=== PATIENT | male | born 1980 | race African-American/Black ===

== ENCOUNTER 2024-06-30 12:51 | Emergency (ER) | payer OTHER, SELFPAY ==
[2024-06-30] VITALS (10 sets, daily range): BP systolic 147–158; BP diastolic 88–100; PULSE 93–114; RESP 11–19; TEMP 36.6; O2SAT 98–100
--- NOTE | 2024-06-30 12:57 | PC.NURSE ---
pt is A+Ox4. pt is refusing labs and IV at this time.
--- NOTE | 2024-06-30 13:13 | ECG_ITS ---
Test Date: 2024-06-30 13:33:23 Measurements Intervals [place] Rate: 89 P: 53 KS: 145 QRS: -12 QRSD: 90 T: 17 QT: 330 QTc: 402 Interpretive Statements SINUS RHYTHM MINIMAL VOLTAGE CRITERIA FOR LVH, CONSIDER NORMAL VARIANT [MEETS CRITERIA IN ONE OF: R(aVL), S(V1), R(V5), R(V5/V6)+S(V1)] SEPTAL MYOCARDIAL INFARCTION , PROBABLY OLD [40+ ms Q WAVE IN V1/V2] No previous ECG available for comparison Electronically Signed On 06-30-2024 15:40:34 CDT by Reinaldo Lo M.D.
--- NOTE | 2024-06-30 13:21 | ED.GENADULT ---
HPI - General Adult General Chief complaint: Overdose <Gato Leblanc MD - Last Filed: 07/03/24 17:57> Stated complaint: intentional OD <Gato Leblanc MD - Last Filed: 07/03/24 17:57> Time Seen by Provider: 06/30/24 13:01 <Gato Leblanc MD - Last Filed: 07/03/24 17:57> History of Present Illness HPI narrative: 44-year-old male present to the emergency department for evaluation for a suspected intentional overdose. Patient states he took amlodipine with the intent to kill himself. Patient states that he was ?tired of getting kicked and tired of having my back to the wall ?. Patient declined labs and workup. Patient states he only took 1 amlodipine and spit the rest out. Patient is declining to have any labs drawn at this time. Patient appears to be in no distress. <Gato Leblanc MD - Last Filed: 07/03/24 17:57> Related Data Allergies/adverse reactions: Allergies Allergy/AdvReac Type Severity Reaction Status Date / Time No Known Allergies Allergy Mild Verified 02/02/08 10:23 <Gato Leblanc MD - Last Filed: 07/03/24 17:57> Review of Systems Review of Systems: All systems reviewed & are unremarkable except as noted in HPI and below <Gato Leblanc MD - Last Filed: 07/03/24 17:57> PMFSH Social History Social History: Social History Substance use type: prescription drug <Gato Leblanc MD - Last Filed: 07/03/24 17:57> Exam Narrative: APPEARANCE: Well appearing, no pain, no distress, well-nourished. HEAD: normocephalic, atraumatic. EYES: PERRLA/EOMI, conjunctivae clear. NOSE: Normal no drainage EARS:TMS clear with good light reflex. THROAT: Pharynx clear, no exudate. NECK: Supple. No adenopathy, no masses. RESPIRATORY: Airway patent, respirations nonlabored. Clear to auscultation bilaterally, no rales, rhonchi, wheezing. CARDIOVASCULAR: Regular rate and rhythm without murmurs rubs or gallops. ABDOMINAL: Soft, nontender, nondistended, normal bowel sounds MUSCULOSKELETAL: Moves all extremities. Strength/ROM intact, No edema, No calf tenderness. NEURO: Alert. Cranial nerves II through XII intact. Good gait. Good coordination SKIN: Warm, dry. Normal Color <Gato Leblanc MD - Last Filed: 07/03/24 17:57> Course Reevaluation(s) Reevaluation #1: patient signed out to pending disposition. He is now with pain to provide blood work so that he can be evaluated by crisis. He is medically cleared for crisis evaluation. He Has been evaluated by psychiatry. They do feel he is stable for discharge with safety plan and close outpatient follow-up. Patient agreeable to this plan. Strict return precautions provided and he is stable for discharge with return precautions. <Rachel Stoll MD - Last Filed: 07/01/24 00:38> Vital Signs Vital signs: Vital Signs Pulse Rate 93 06/30/24 13:00 Respiratory Rate 15 06/30/24 13:00 Blood Pressure 158/100 H 06/30/24 13:00 Pulse Oximetry 100 06/30/24 13:00 Temperature 98 F 06/30/24 13:05 Pulse Rate 89 07/01/24 00:48 Respiratory Rate 14 07/01/24 00:48 Blood Pressure 142/82 H 07/01/24 00:48 Pulse Oximetry 97 07/01/24 00:48 Oxygen Delivery Room Air 06/30/24 13:05 <Gtao Leblanc MD - Last Filed: 07/03/24 17:57> Vital Signs Pulse Rate 93 06/30/24 13:00 Respiratory Rate 15 06/30/24 13:00 Blood Pressure 158/100 H 06/30/24 13:00 Pulse Oximetry 100 06/30/24 13:00 Temperature 98 F 06/30/24 13:05 Pulse Rate 89 07/01/24 00:48 Respiratory Rate 14 07/01/24 00:48 Blood Pressure 142/82 H 07/01/24 00:48 Pulse Oximetry 97 07/01/24 00:48 Oxygen Delivery Room Air 06/30/24 13:05 <Rachel Stoll MD - Last Filed: 07/01/24 00:38> Medical Decision Making MDM Narrative Medical decision making narrative: 44-year-old male presents emergency department for evaluation after a suicide attempt. Patient is alert and orientated and is declining any labs. Patient states he does not like needles. Patient was offered medication for anxiety to help with his aversion to needles and patient declined. Patient is not tachycardic patient is not hypotensive and patient is in no distress at this time. Crisis was called and declined to evaluate the patient. We will continue to evaluate the patient for further observation duration and will attempt to call crisis again. <Gato Leblanc MD - Last Filed: 07/03/24 17:57> Vital Signs Vital Signs: Vital Signs Pulse Rate 93 06/30/24 13:00 Respiratory Rate 15 06/30/24 13:00 Blood Pressure 158/100 H 06/30/24 13:00 Pulse Oximetry 100 06/30/24 13:00 Temperature 98 F 06/30/24 13:05 Pulse Rate 89 07/01/24 00:48 Respiratory Rate 14 07/01/24 00:48 Blood Pressure 142/82 H 07/01/24 00:48 Pulse Oximetry 97 07/01/24 00:48 Oxygen Delivery Room Air 06/30/24 13:05 <Gato Leblanc MD - Last Filed: 07/03/24 17:57> Vital Signs Pulse Rate 93 06/30/24 13:00 Respiratory Rate 15 06/30/24 13:00 Blood Pressure 158/100 H 06/30/24 13:00 Pulse Oximetry 100 06/30/24 13:00 Temperature 98 F 06/30/24 13:05 Pulse Rate 89 07/01/24 00:48 Respiratory Rate 14 07/01/24 00:48 Blood Pressure 142/82 H 07/01/24 00:48 Pulse Oximetry 97 07/01/24 00:48 Oxygen Delivery Room Air 06/30/24 13:05 <Rachel Stoll MD - Last Filed: 07/01/24 00:38> Lab Data Result diagrams: 06/30/24 21:14 06/30/24 21:14 <Gato Leblanc MD - Last Filed: 07/03/24 17:57> Labs: Lab Results 06/30/24 06/30/24 06/30/24 Range/Units 20:57 21:14 21:14 WBC 9.6 (4.5-10.0) K/mm3 RBC 4.70 (4.6-6.20) M/mm3 Hgb 9.0 L (14.0-18.0) g/dL Hct 32.7 L (42.0-52.0) % MCV 69.6 L (80-100) fl MCH 19.1 L (26-34) pg MCHC 27.5 L (32-36) g/dl RDW 16.3 H (11.5-14.5) % Plt Count 582 H (150-375) k/mm3 MPV 8.8 (7.4-10.4) fl Immature Gran % (Auto) 0.2 (0-0.5) % Neut % (Auto) 70.1 (45.5-73.1) % Lymph % (Auto) 23.2 (18.3-44.2) % [place] % (Auto) 5.3 (2.6-8.5) % Eos % (Auto) 0.8 (0-4.4) % Baso % (Auto) 0.4 (0.2-1.2) % Lymph # (Auto) 2.23 (0.9-3.2) K/mm3 [place] # (Auto) 0.5 (0.1-0.6) K/mm3 Eos # (Auto) 0.1 (0-0.3) K/mm3 Baso # (Auto) 0.0 (0.0-0.1) K/mm3 Abs Immat Gran (auto) 0.02 (0.00-0.031) K/mm3 Absolute Neuts (auto) 6.7 (1.3-6.7) K/mm3 Absolute Nucleated RBC 0.000 (0.0-0.012) K/mm3 Nucleated RBC % 0.0 (0.0-0.2) % Platelet Estimate Increased (Adequate) Large Platelets Present Hypochromasia 1+ Target Cells 1+ Ovalocytes 1+ Schistocytes None seen PT 15.0 H (11.1-14.7) Seconds INR 1.2 APTT 27.4 (22.3-36.8) Seconds Sodium 142 (137-145) mmol/L Potassium 3.7 (3.4-5.0) mmol/L Chloride 102 (98-107) mmol/L Carbon Dioxide 24 (22-30) mmol/L Anion Gap 16 H (4-12) mmol/L BUN 12 (9-20) mg/dL Creatinine 1.10 (0.7-1.3) mg/dL Estim Creat Clear Calc 70 ml/min Estimated GFR > 60 (59 - ) Glucose 101 (65-110) mg/dL Calcium 10.4 H (8.4-10.2) mg/dL Magnesium 2.1 (1.6-2.3) mg/dL Total Bilirubin 0.6 (0.2-1.3) mg/dL AST 38 (17-59) U/L ALT 22 (6-50) U/L Alkaline Phosphatase 104 (38-126) U/L Total Protein 11.0 H (6.3-8.2) g/dL Albumin 5.4 H (3.5-5.1) g/dL TSH 2.710 (0.465-4.680) uIU/mL Urine Color Yellow (Yellow) Urine Appearance Clear (Clear) Urine pH 7.0 (5.0-9.0) Ur Specific [place] 1.017 (1.001-1.035) Urine Protein Trace (Negative) mg/dL Urine Glucose (UA) Negative (Negative) mg/dL Urine Ketones Trace H (Negative) mg/dL Ur Blood (Man) Non-hemolyzed trace (Negative) Urine Nitrate Negative (Negative) Urine Bilirubin Negative (Negative) Urine Urobilinogen 1.0 (<2.0) mg/dL Leukocyte Esterase Rfl Trace H (Negative) JUAN F/UL Urine RBC 6-10 H (0-2) /hpf Urine WBC 0-5 (0-3) /hpf Ur Squamous Epith Cells None seen (Few) /hpf Urine Bacteria None seen /hpf Urine Casts 3-5 Salicylates < 1.0 L (2-20) mg/dL Urine Opiates Screen Negative (Negative) Urine Methadone Screen Negative (Negative) Acetaminophen Cancelled < 10 L Ur Barbiturates Screen Negative (Negative) Ur Phencyclidine Scrn Negative (Negative) Ur Amphetamine Screen Positive A (Negative) U Benzodiazepines Scrn Negative (Negative) Urine Cocaine Screen Negative (Negative) U Cannabinoids Screen Positive A (Negative) Ethyl Alcohol < 10 (<10) mg/dL Influenza A (RT-PCR) (Negative) Influenza B (RT-PCR) (Negative) RSV (RT-PCR) (Negative) SARS-CoV-2 RNA (RT-PCR) (Negative) 06/30/24 Range/Units 21:23 WBC (4.5-10.0) K/mm3 RBC (4.6-6.20) M/mm3 Hgb (14.0-18.0) g/dL Hct (42.0-52.0) % MCV (80-100) fl MCH (26-34) pg MCHC (32-36) g/dl RDW (11.5-14.5) % Plt Count (150-375) k/mm3 MPV (7.4-10.4) fl Immature Gran % (Auto) (0-0.5) % Neut % (Auto) (45.5-73.1) % Lymph % (Auto) (18.3-44.2) % [place] % (Auto) (2.6-8.5) % Eos % (Auto) (0-4.4) % Baso % (Auto) (0.2-1.2) % Lymph # (Auto) (0.9-3.2) K/mm3 [place] # (Auto) (0.1-0.6) K/mm3 Eos # (Auto) (0-0.3) K/mm3 Baso # (Auto) (0.0-0.1) K/mm3 Abs Immat Gran (auto) (0.00-0.031) K/mm3 Absolute Neuts (auto) (1.3-6.7) K/mm3 Absolute Nucleated RBC (0.0-0.012) K/mm3 Nucleated RBC % (0.0-0.2) % Platelet Estimate (Adequate) Large Platelets Hypochromasia Target Cells Ovalocytes Schistocytes PT (11.1-14.7) Seconds INR APTT (22.3-36.8) Seconds Sodium (137-145) mmol/L Potassium (3.4-5.0) mmol/L Chloride (98-107) mmol/L Carbon Dioxide (22-30) mmol/L Anion Gap (4-12) mmol/L BUN (9-20) mg/dL Creatinine (0.7-1.3) mg/dL Estim Creat Clear Calc ml/min Estimated GFR (59 - ) Glucose (65-110) mg/dL Calcium (8.4-10.2) mg/dL Magnesium (1.6-2.3) mg/dL Total Bilirubin (0.2-1.3) mg/dL AST (17-59) U/L ALT (6-50) U/L Alkaline Phosphatase (38-126) U/L Total Protein (6.3-8.2) g/dL Albumin (3.5-5.1) g/dL TSH (0.465-4.680) uIU/mL Urine Color (Yellow) Urine Appearance (Clear) Urine pH (5.0-9.0) Ur Specific [place] (1.001-1.035) Urine Protein (Negative) mg/dL Urine Glucose (UA) (Negative) mg/dL Urine Ketones (Negative) mg/dL Ur Blood (Man) (Negative) Urine Nitrate (Negative) Urine Bilirubin (Negative) Urine Urobilinogen (<2.0) mg/dL Leukocyte Esterase Rfl (Negative) JUAN F/UL Urine RBC (0-2) /hpf Urine WBC (0-3) /hpf Ur Squamous Epith Cells (Few) /hpf Urine Bacteria /hpf Urine Casts Salicylates (2-20) mg/dL Urine Opiates Screen (Negative) Urine Methadone Screen (Negative) Acetaminophen Ur Barbiturates Screen (Negative) Ur Phencyclidine Scrn (Negative) Ur Amphetamine Screen (Negative) U Benzodiazepines Scrn (Negative) Urine Cocaine Screen (Negative) U Cannabinoids Screen (Negative) Ethyl Alcohol (<10) mg/dL Influenza A (RT-PCR) Negative (Negative) Influenza B (RT-PCR) Negative (Negative) RSV (RT-PCR) Negative (Negative) SARS-CoV-2 RNA (RT-PCR) Negative (Negative) <Gato Leblanc MD - Last Filed: 07/03/24 17:57> Lab Results 06/30/24 06/30/24 06/30/24 Range/Units 20:57 21:14 21:14 WBC 9.6 (4.5-10.0) K/mm3 RBC 4.70 (4.6-6.20) M/mm3 Hgb 9.0 L (14.0-18.0) g/dL Hct 32.7 L (42.0-52.0) % MCV 69.6 L (80-100) fl MCH 19.1 L (26-34) pg MCHC 27.5 L (32-36) g/dl RDW 16.3 H (11.5-14.5) % Plt Count 582 H (150-375) k/mm3 MPV 8.8 (7.4-10.4) fl Immature Gran % (Auto) 0.2 (0-0.5) % Neut % (Auto) 70.1 (45.5-73.1) % Lymph % (Auto) 23.2 (18.3-44.2) % [place] % (Auto) 5.3 (2.6-8.5) % Eos % (Auto) 0.8 (0-4.4) % Baso % (Auto) 0.4 (0.2-1.2) % Lymph # (Auto) 2.23 (0.9-3.2) K/mm3 [place] # (Auto) 0.5 (0.1-0.6) K/mm3 Eos # (Auto) 0.1 (0-0.3) K/mm3 Baso # (Auto) 0.0 (0.0-0.1) K/mm3 Abs Immat Gran (auto) 0.02 (0.00-0.031) K/mm3 Absolute Neuts (auto) 6.7 (1.3-6.7) K/mm3 Absolute Nucleated RBC 0.000 (0.0-0.012) K/mm3 Nucleated RBC % 0.0 (0.0-0.2) % Platelet Estimate Increased (Adequate) Large Platelets Present Hypochromasia 1+ Target Cells 1+ Ovalocytes 1+ Schistocytes None seen PT 15.0 H (11.1-14.7) Seconds INR 1.2 APTT 27.4 (22.3-36.8) Seconds Sodium 142 (137-145) mmol/L Potassium 3.7 (3.4-5.0) mmol/L Chloride 102 (98-107) mmol/L Carbon Dioxide 24 (22-30) mmol/L Anion Gap 16 H (4-12) mmol/L BUN 12 (9-20) mg/dL Creatinine 1.10 (0.7-1.3) mg/dL Estim Creat Clear Calc 70 ml/min Estimated GFR > 60 (59 - ) Glucose 101 (65-110) mg/dL Calcium 10.4 H (8.4-10.2) mg/dL Magnesium 2.1 (1.6-2.3) mg/dL Total Bilirubin 0.6 (0.2-1.3) mg/dL AST 38 (17-59) U/L ALT 22 (6-50) U/L Alkaline Phosphatase 104 (38-126) U/L Total Protein 11.0 H (6.3-8.2) g/dL Albumin 5.4 H (3.5-5.1) g/dL TSH 2.710 (0.465-4.680) uIU/mL Urine Color Yellow (Yellow) Urine Appearance Clear (Clear) Urine pH 7.0 (5.0-9.0) Ur Specific [place] 1.017 (1.001-1.035) Urine Protein Trace (Negative) mg/dL Urine Glucose (UA) Negative (Negative) mg/dL Urine Ketones Trace H (Negative) mg/dL Ur Blood (Man) Non-hemolyzed trace (Negative) Urine Nitrate Negative (Negative) Urine Bilirubin Negative (Negative) Urine Urobilinogen 1.0 (<2.0) mg/dL Leukocyte Esterase Rfl Trace H (Negative) JUAN F/UL Urine RBC 6-10 H (0-2) /hpf Urine WBC 0-5 (0-3) /hpf Ur Squamous Epith Cells None seen (Few) /hpf Urine Bacteria None seen /hpf Urine Casts 3-5 Salicylates < 1.0 L (2-20) mg/dL Urine Opiates Screen Negative (Negative) Urine Methadone Screen Negative (Negative) Acetaminophen Cancelled < 10 L Ur Barbiturates Screen Negative (Negative) Ur Phencyclidine Scrn Negative (Negative) Ur Amphetamine Screen Positive A (Negative) U Benzodiazepines Scrn Negative (Negative) Urine Cocaine Screen Negative (Negative) U Cannabinoids Screen Positive A (Negative) Ethyl Alcohol < 10 (<10) mg/dL Influenza A (RT-PCR) (Negative) Influenza B (RT-PCR) (Negative) RSV (RT-PCR) (Negative) SARS-CoV-2 RNA (RT-PCR) (Negative) 06/30/24 Range/Units 21:23 WBC (4.5-10.0) K/mm3 RBC (4.6-6.20) M/mm3 Hgb (14.0-18.0) g/dL Hct (42.0-52.0) % MCV (80-100) fl MCH (26-34) pg MCHC (32-36) g/dl RDW (11.5-14.5) % Plt Count (150-375) k/mm3 MPV (7.4-10.4) fl Immature Gran % (Auto) (0-0.5) % Neut % (Auto) (45.5-73.1) % Lymph % (Auto) (18.3-44.2) % [place] % (Auto) (2.6-8.5) % Eos % (Auto) (0-4.4) % Baso % (Auto) (0.2-1.2) % Lymph # (Auto) (0.9-3.2) K/mm3 [place] # (Auto) (0.1-0.6) K/mm3 Eos # (Auto) (0-0.3) K/mm3 Baso # (Auto) (0.0-0.1) K/mm3 Abs Immat Gran (auto) (0.00-0.031) K/mm3 Absolute Neuts (auto) (1.3-6.7) K/mm3 Absolute Nucleated RBC (0.0-0.012) K/mm3 Nucleated RBC % (0.0-0.2) % Platelet Estimate (Adequate) Large Platelets Hypochromasia Target Cells Ovalocytes Schistocytes PT (11.1-14.7) Seconds INR APTT (22.3-36.8) Seconds Sodium (137-145) mmol/L Potassium (3.4-5.0) mmol/L Chloride (98-107) mmol/L Carbon Dioxide (22-30) mmol/L Anion Gap (4-12) mmol/L BUN (9-20) mg/dL Creatinine (0.7-1.3) mg/dL Estim Creat Clear Calc ml/min Estimated GFR (59 - ) Glucose (65-110) mg/dL Calcium (8.4-10.2) mg/dL Magnesium (1.6-2.3) mg/dL Total Bilirubin (0.2-1.3) mg/dL AST (17-59) U/L ALT (6-50) U/L Alkaline Phosphatase (38-126) U/L Total Protein (6.3-8.2) g/dL Albumin (3.5-5.1) g/dL TSH (0.465-4.680) uIU/mL Urine Color (Yellow) Urine Appearance (Clear) Urine pH (5.0-9.0) Ur Specific [place] (1.001-1.035) Urine Protein (Negative) mg/dL Urine Glucose (UA) (Negative) mg/dL Urine Ketones (Negative) mg/dL Ur Blood (Man) (Negative) Urine Nitrate (Negative) Urine Bilirubin (Negative) Urine Urobilinogen (<2.0) mg/dL Leukocyte Esterase Rfl (Negative) JUAN F/UL Urine RBC (0-2) /hpf Urine WBC (0-3) /hpf Ur Squamous Epith Cells (Few) /hpf Urine Bacteria /hpf Urine Casts Salicylates (2-20) mg/dL Urine Opiates Screen (Negative) Urine Methadone Screen (Negative) Acetaminophen Ur Barbiturates Screen (Negative) Ur Phencyclidine Scrn (Negative) Ur Amphetamine Screen (Negative) U Benzodiazepines Scrn (Negative) Urine Cocaine Screen (Negative) U Cannabinoids Screen (Negative) Ethyl Alcohol (<10) mg/dL Influenza A (RT-PCR) Negative (Negative) Influenza B (RT-PCR) Negative (Negative) RSV (RT-PCR) Negative (Negative) SARS-CoV-2 RNA (RT-PCR) Negative (Negative) <Rachel Stoll MD - Last Filed: 07/01/24 00:38> Discharge Plan Discharge Clinical Impression: Suicide attempt by drug ingestion <Gato Leblanc MD - Last Filed: 07/03/24 17:57> Patient Disposition: Home, Self-Care <Gato Leblanc MD - Last Filed: 07/03/24 17:57> Condition: Stable <Gato Leblanc MD - Last Filed: 07/03/24 17:57> Instructions: Antibiotic Form, Help Prevent Suicide (ED) <Gato Leblanc MD - Last Filed: 07/03/24 17:57> Additional Instructions: Please come back to the emergency room for any further issues, especially if you have any more thoughts of hurting herself or others. <Gato Leblanc MD - Last Filed: 07/03/24 17:57> Follow-up/Referrals: [facility] [Outside] - 2 Days [facility] [Outside] - 2 Days Mark Anthony,Phyllis Galloway MD [Primary Care Provider] - <Gato Leblanc MD - Last Filed: 07/03/24 17:57>
--- NOTE | 2024-06-30 13:28 | PC.NURSE ---
This RN called poison control and spoke to Esther DIAZ. This RN told to order lactic and calcium. poison control told to watch for hyperglycemia. poison control told to watch over 6-12 hours due to the long peak time.
--- NOTE | 2024-06-30 14:02 | PC.NURSE ---
This RN tried to get pt urine sample. pt refused the sample at the moment.
--- NOTE | 2024-06-30 14:45 | PC.NURSE ---
This RN tried to get a urine sample from pt. pt refuses to use bathroom at this time.
--- NOTE | 2024-06-30 15:16 | PC.NURSE ---
This RN spoke to Esther RN at poison control. made aware of pt refusing labs, IV, and urine. stated to follow up within a few hours and to keep monitoring pt.
[2024-06-30] MEDS: NICOTINE (*PBKC) 14 MG PATCH 1 PATCH TRANSDERM (17:01)
--- NOTE | 2024-06-30 17:27 | PC.NURSE ---
This RN spoke with Esther DIAZ from poison control. RN states that the decision is up to the EDP since the RN did not see a drop in blood pressure. EDP notified
--- NOTE | 2024-06-30 17:29 | PC.NURSE ---
This RN spoke with Crisis about an evaluation.
--- NOTE | 2024-06-30 17:32 | PC.NURSE ---
Crisis called this RN back. Crisis unable to come evaluate pt due to denial of labs.
--- NOTE | 2024-06-30 17:57 | PC.NURSE ---
updated pt about Crisis not coming. pt made aware need labs in order for crisis to come. pt refuses lab work
--- NOTE | 2024-06-30 18:32 | PC.NURSE ---
pt to the bathroom. pt refused to give urine sample.
--- NOTE | 2024-06-30 19:43 | PC.NURSE ---
Spoke with patient about lab work and patient states he needs time to think about it. Patient informed that night physician will be in to talk with him.
--- NOTE | 2024-06-30 19:59 | PC.NURSE ---
Patient refusing lab work.
[2024-06-30 21:07] LABS: Add Urine Microscopic? YES; Appearance Urine Clear (Clear); Bacteria Urine None Seen /hpf; Bilirubin Urine Negative (Negative); Blood Urine Non-Hemolyzed Trace (Negative); Color Urine Yellow (Yellow); Glucose Urine UA Negative (Negative); Ketones Urine Trace mg/dL (Negative); Leukocyte Esterase Ur Trace LEU/UL (Negative); Nitrate Urine Negative (Negative); Protein Urine Trace mg/dL (Negative); Specific Grav Ur 1.017 (1.001-1.035); Squamous Epithelial Cell Urine None Seen /hpf (Few); WBC Urine 0-5 /hpf (0-3)
[2024-06-30 21:22] LABS: Barbiturate Screen Urine Negative (Negative); Benzodiazepines Screen Urine Negative (Negative)
[2024-06-30 21:31] LABS: Cannabinoid Screen Urine Positive (Negative); Cocaine Screen Urine Negative (Negative); Methadone Screen Urine Negative (Negative); Opiate Screen Urine Negative (Negative); Phencyclidine Screen Urine Negative (Negative)
[2024-06-30 21:35] LABS: Basophils Percent Auto 0.4 % (0.2-1.2); Eosinophils Absolute Auto 0.1 K/mm3 (0-0.3); Eosinophils Percent Auto 0.8 % (0-4.4); Hematocrit 32.7 % (42.0-52.0); Immature Granulocyte Absolute 0.02 K/mm3 (0.00-0.031); Immature Granulocyte Percent A 0.2 % (0-0.5); Lymphocytes Absolute Auto 2.23 K/mm3 (0.9-3.2); Lymphocytes Percent Auto 23.2 % (18.3-44.2); Mean Corpuscular HGB Conc 27.5 g/dl (32-36); Mean Corpuscular Hemoglobin 19.1 pg (26-34); Mean Corpuscular Volume 69.6 fl (80-100); Mean Platelet Volume 8.8 fl (7.4-10.4); Monocytes Absolute Auto 0.5 K/mm3 (0.1-0.6); Monocytes Percent Auto 5.3 % (2.6-8.5); Neutrophils Absolute Auto 6.7 K/mm3 (1.3-6.7); Neutrophils Percent Auto 70.1 % (45.5-73.1); Platelet Count Result 582 k/mm3 (150-375); Red Cell Distribution Width 16.3 % (11.5-14.5); White Blood Count 9.6 K/mm3 (4.5-10.0)
[2024-06-30 21:45] LABS: Acetaminophen < 10 ug/mL (10-30); Ethanol < 10 mg/dL (<10); Salicylate < 1.0 mg/dL (2-20)
[2024-06-30 21:50] LABS: INR 1.2
[2024-06-30 21:51] LABS: Alanine Aminotransferase 22 U/L (6-50); Albumin Level 5.4 g/dL (3.5-5.1); Alkaline Phosphatase 104 U/L (38-126); Anion Gap 16 mmol/L (4-12); Aspartate Amino Transferase 38 U/L (17-59); Bilirubin,Total 0.6 mg/dL (0.2-1.3); Blood Urea Nitrogen 12 mg/dL (9-20); Calcium 10.4 mg/dL (8.4-10.2); Carbon Dioxide 24 mmol/L (22-30); Chloride 102 mmol/L (98-107); Estimated CRCL calculation 70 ml/min; Estimated Glomerular Filt Rate > 60; Glucose 101 mg/dL (65-110); Magnesium 2.1 mg/dL (1.6-2.3); Partial Thromboplastin Time 27.4 Seconds (22.3-36.8); Potassium 3.7 mmol/L (3.4-5.0); Sodium 142 mmol/L (137-145)
[2024-06-30 21:56] LABS: Amphetamine Screen Urine Positive (Negative)
[2024-06-30 22:13] LABS: Influenza A QL RT-PCR Negative (Negative); Influenza B QL RT-PCR Negative (Negative); RSV RNA, RT-PCR Negative (Negative); SARS-CoV-2 RNA PCR Negative (Negative)
[2024-06-30 22:16] LABS: Hypochromasia 1+; Large Platelets Present; Ovalocytes 1+; Platelet Estimate Increased (Adequate); Schistocytes None Seen; Target Cells 1+
[2024-07-01 00:48] VITALS: BP 142/82; PULSE 89; RESP 14; O2SAT 97
== END 2024-07-01 00:49 | disposition home or self-care (01) ==
PROVIDERS: Emergency Medicine; Emergency Provider Emergency Medicine; PCP Family Medicine
DX: T46.1X2A Poisoning by calcium-channel blockers, intentional self-harm, initial encounter (principal); Z11.52 Encounter for screening for COVID-19
CPT/HCPCS: 36415; 80053; 80143; 80179; 80307; 81001; 82077; 83735; 84443; 85025; 85610; 85730; 87637; 93005; 99284; A9270